=== PATIENT | male | born 1995 | race Caucasian/White ===

== ENCOUNTER 2018-11-25 18:07 | Emergency (ER) | payer OTHER ==
[~2018-11-25] VITALS: Ht 172.7 cm; Wt 68.0 kg
[2018-11-25 18:14] VITALS: Ht 172.7 cm; Wt 68.0 kg
[2018-11-25 18:34] LABS: UA SPECIFIC GRAVITY <=1.005 (1.005-1.035); microscopic required? YES; urine erythrocyte TRACE (NEGATIVE)
[2018-11-25 18:53] VITALS: BP 126/72
== END 2018-11-25 18:53 | disposition home or self-care (01) ==
LOC: ED 18:07
PROVIDERS: Emergency Medicine
DX: R30.0 Dysuria (principal)

== ENCOUNTER 2019-11-30 02:17 | Inpatient (IN) | payer MEDICAID ==
[~2019-11-30] VITALS: Ht 172.7 cm; Wt 72.6 kg
[2019-11-30 02:42] LABS: BASOPHIL % 0.3 % (0-2); PLATELET COUNT 306 x10^3mcL (130-400); RED CELL DISTRIBUTION WIDTH 13.6 % (11.5-14.5)
[2019-11-30 03:01] LABS: CALCIUM 8.6 mg/dL (8.5-10.1); CARBON DIOXIDE 23.5 mmol/L (21-32); CHLORIDE SERUM 105 mmol/L (98-107); CREATININE SERUM 0.9 mg/dL (0.7-1.3); GFR1 > 60 mL/min; GLUCOSE SERUM 113 mg/dL (74-106); POTASSIUM SERUM 3.5 mmol/L (3.5-5.1); SODIUM SERUM 141 mmol/L (136-145)
[2019-11-30 03:07] LABS: ALBUMIN 4.2 g/dL (3.4-5.0); ALKALINE PHOSPHATASE 66 U/L (46-116); ALT/SGPT 34 U/L (16-63); AST/SGOT 14 U/L (15-37); BILIRUBIN TOTAL 0.15 mg/dL (0.20-1.00); TOTAL PROTEIN, SERUM 7.7 g/dL (6.4-8.2)
[2019-11-30 03:17] LABS: AMPHETAMINE QUAL UR NONE DETECTED (See below)
[2019-11-30 23:28] VITALS: BP 121/77
[2019-12-01 05:53] VITALS: BP 115/71
[2019-12-01 07:15] VITALS: Ht 172.7 cm; Wt 72.6 kg
[2019-12-01 10:39] VITALS: BP 112/64
[2019-12-01 16:38] VITALS: BP 117/69
[2019-12-01 17:20] VITALS: BP 117/69
== END 2019-12-01 17:49 | disposition home or self-care (01) | DRG 384 ==
LOC: ED 02:17 → MU 21:18
PROVIDERS: Emergency Medicine; ADMIT Family Medicine; ATTEND Family Medicine
DX: S40.812A Abrasion of left upper arm, initial encounter (principal); R45.851 Suicidal ideations; F32.9 Major depressive disorder, single episode, unspecified; X78.1XXA Intentional self-harm by knife, initial encounter; Z56.0 Unemployment, unspecified; Y93.89 Activity, other specified; Y92.89 Other specified places as the place of occurrence of the external cause; Y99.8 Other external cause status; Z79.899 Other long term (current) drug therapy
CPT/HCPCS: 90715; G0378; G0480; J7030

== ENCOUNTER 2019-12-20 00:04 | Emergency (ER) | payer MEDICAID ==
[~2019-12-20] VITALS: Ht 172.7 cm; Wt 67.1 kg
[2019-12-20 00:10] VITALS: Ht 172.7 cm; Wt 67.1 kg
[2019-12-20 06:25] VITALS: BP 131/81
== END 2019-12-20 06:24 | disposition home or self-care (01) ==
LOC: ED 00:04
DX: F10.129 Alcohol abuse with intoxication, unspecified (principal); Y90.9 Presence of alcohol in blood, level not specified; Z98.890 Other specified postprocedural states